=== PATIENT | female | born 2000 | race Caucasian/White ===

== ENCOUNTER 2023-09-12 18:46 | Emergency (ER) | payer BC ==
[2023-09-12] MEDS ORDERED: Pantoprazole DR 40 MG TAB ONE (19:21)
== END 2023-09-12 20:09 | disposition home or self-care (01) ==
LOC: CSHERS 18:46
DX: K21.9 Gastro-esophageal reflux disease without esophagitis (principal)
CPT/HCPCS: 99283

== ENCOUNTER 2023-09-14 14:48 | Emergency (ER) | payer BC ==
[2023-09-14 15:56] LABS: #Basophils 0.05 10x3/uL (0.0-0.2); #Eosinphils 0.39 10x3/uL (0.0-0.5); #Monocytes 0.56 10x3/uL (0.0-1.1); #Neutrophils 4.87 10x3/uL (1.5-8.4); %Basophils 0.7 % (0.0-2.0); %Eosinophils 5.2 % (0.0-6.0); %Lymphocytes 20.9 % (18.0-47.0); %Monocytes 7.5 % (0.0-10.0); %Neutrophils 65.4 % (40.0-75.0); Hematocrit 36.3 % (34.9-44.5); Hemoglobin 12.3 g/dL (12.0-15.5); Mean Corpuscular HGB CONC 33.9 g/dL (32.0-36.0); Mean Corpuscular Hemoglobin 31.1 pg (27.0-33.0); Mean Corpuscular Volume 91.7 fL (81.6-98.3); Mean Platelet Volume 9.5 fL (7.4-10.4); Platelet Count 185 10x3/uL (150-450); RBC Distribution Width 11.9 % (11.5-14.5); Red Blood Cell (RBC) Count 3.96 10x6/uL (3.90-5.03); White Blood Cell (WBC) Count 7.5 10x3/uL (3.5-10.5)
[2023-09-14 16:13] LABS: ALT (SGPT) 13 U/L (8-55); AST (SGOT) 16 U/L (5-34); Alkaline Phosphatase 46 U/L (40-110); Anion Gap 12 mmol/L (10-20); BUN (Urea Nitrogen) 8 mg/dL (7.0-18.7); Bilirubin, Total 0.8 mg/dL (0.2-1.2); Calc. Creatinine Clearance 0 mL/min (70-130); Calcium 9.4 mg/dL (7.8-10.44); Carbon Dioxide 24 mmol/L (22-29); Chloride 106 mmol/L (98-107); Estimated GFR 106; Globulin 3.5 g/dL (2.4-3.5); Glucose 99 mg/dL (70-105); Potassium 3.9 mmol/L (3.5-5.1); Protein, Total 7.5 g/dL (6.0-8.3); Sodium 138 mmol/L (136-145)
[2023-09-14 16:22] LABS: BHCG - Serum Negative (NEGATIVE)
[2023-09-14 16:23] LABS: Pregs Control Background? CLEAR/WHITE (CLR/WHITE); Pregs Control Bar Appear? YES (CONTROL BAR)
[2023-09-14] MEDS ORDERED: Lidocaine Viscous Sol 2% 15 ml UD Cup ONE (16:32)
[2023-09-14] MEDS ORDERED: Mag-Al Plus 1200/1200/120 MG (30 mL) UDCUP ONE (16:33)
[2023-09-14] MEDS ORDERED: Dexamethasone 10 MG/ML VIAL ONE (18:26)
[2023-09-14] MEDS ORDERED: Bicillin LA 1.2 MILLION UNITS/2 ML SYRINGE IM SCH (18:30)
== END 2023-09-14 18:05 | disposition home or self-care (01) ==
LOC: CSHERS 14:48
DX: J02.9 Acute pharyngitis, unspecified (principal)
CPT/HCPCS: 36415; 71045; 80053; 84703; 85025; 87430; 96372; J0561; J1100

== ENCOUNTER 2023-09-22 09:24 | Outpatient (CLI) | payer BC | END 2023-09-22 09:25 | disposition home or self-care (01) | LOC: CSHRAD 09:24 | PROVIDERS: ATTEND Family Medicine Sports Medicine | DX: K21.9 Gastro-esophageal reflux disease without esophagitis (principal) | CPT/HCPCS: 76700 ==

== ENCOUNTER 2024-11-09 08:13 | Emergency (ER) | payer BC | END 2024-11-09 09:12 | disposition home or self-care (01) | LOC: CSHERS 08:13 | DX: S63.602A Unspecified sprain of left thumb, initial encounter (principal); X50.9XXA Other and unspecified overexertion or strenuous movements or postures, initial encounter | CPT/HCPCS: 99283 ==